=== PATIENT | male | born 1995 | race Two or more races ===

== ENCOUNTER 2025-03-24 19:31 | Emergency (ER) | payer MEDICAID, OTHER ==
[~2025-03-24] VITALS: Ht 167.6 cm; Wt 76.3 kg
[2025-03-24 20:04] LABS: Hematocrit 42.7 % (41.0-53.0); Hemoglobin 14.8 g/dL (13.5-17.5); Mean Corpuscular Hemoglobin 29.1 pg (28.0-32.0); Mean Corpuscular Volume 83.9 fL (80.0-100.0); Nucleated Red Blood Cells % 0.1 %
--- NOTE | 2025-03-24 20:28 | DVH ---
CHEST RADIOGRAPH Indication: cp Technique: Single frontal view of the chest was obtained Comparison: XR CHEST 1 VIEW on DOS: 09/05/22, XR CHEST 1 VIEW on DOS: 12/12/21 FINDINGS: Lines and Tubes: 2 radiopaque foreign bodies over the left chest. Lungs: No focal consolidation. Pleura: No effusion. No pneumothorax. Cardiomediastinal contours: Unremarkable Bones: No acute osseous abnormality. IMPRESSION: 1. No acute cardiopulmonary disease.
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
[2025-03-24 20:55] LABS: Anion Gap 11 (5-15); BUN/Creatinine Ratio 13.7 (10.0-20.0)
[2025-03-24 20:57] LABS: Blood Urea Nitrogen 14 mg/dL (9-23); Calcium 9.1 mg/dL (8.7-10.4); Carbon Dioxide 27 mmol/L (20-31); Chloride 107 mmol/L (98-107); Glucose 89 mg/dL (74-106); Potassium 3.9 mmol/L (3.5-5.1); Sodium 145 mmol/L (136-145)
[2025-03-24] MEDS: hydrOXYzine 25 MG TAB or CAP PO ONE (21:28)
--- NOTE | 2025-03-24 22:37 | ECG ---
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
[2025-03-24 23:18] VITALS: BP 133/99; PULSE 89; RESP 22; TEMP 98.5; O2SAT 96
--- NOTE | 2025-03-25 05:53 | ECG ---
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
--- NOTE | 2025-03-25 05:53 | ECG ---
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
== END 2025-03-24 23:24 | disposition home or self-care (01) ==
LOC: ER 19:31
DX: R07.9 Chest pain, unspecified (principal); R00.2 Palpitations; I10 Essential (primary) hypertension; F17.210 Nicotine dependence, cigarettes, uncomplicated
CPT/HCPCS: 36415; 71045; 80048; 84484; 85025; 93005